=== PATIENT | female | born 2000 | race Two or more races ===

== ENCOUNTER 2020-04-20 17:39 | Emergency (ER) | payer BC, OTHER ==
[~2020-04-20] VITALS: Ht 160 cm; Wt 81.6 kg
[2020-04-20 18:47] VITALS: BP 131/81
[2020-04-20] MEDS ORDERED: KETOROLAC TROMETH 60MG/2ML VIAL IM ONE (19:30)
== END 2020-04-20 20:24 | disposition home or self-care (01) ==
LOC: ER 17:39
DX: S93.402A Sprain of unspecified ligament of left ankle, initial encounter (principal); E11.9 Type 2 diabetes mellitus without complications; X58.XXXA Exposure to other specified factors, initial encounter; Y93.9 Activity, unspecified; Y92.89 Other specified places as the place of occurrence of the external cause; Y99.8 Other external cause status
CPT/HCPCS: 73630; 96372; 99283; J1885

== ENCOUNTER 2022-07-07 22:12 | Emergency (ER) | payer BC ==
[~2022-07-07] VITALS: Ht 160 cm; Wt 74.4 kg
[2022-07-08 00:11] LABS: Basophils # (auto) 0 10 ^3/uL (0-0.2); Basophils % (auto) 0.2 % (0.0-2.0); Eosinophils # (auto) 0 10 ^3/uL (0-0.8); Eosinophils % (auto) 0.3 % (0.0-7.0); Hematocrit 42.7 % (36.0-46.0); Hemoglobin 14.6 g/dL (12.2-16.2); Lymphocytes # (auto) 0.4 10 ^3/uL (0.4-5.4); Lymphocytes % (auto) 6.1 % (10.0-50.0); Mean Corpuscular Hemoglobin 30.5 pg (28.0-32.0); Mean Corpuscular Hgb Conc. 34.3 g/dL (32.0-36.0); Mean Corpuscular Volume 88.9 fL (80.0-100.0); Monocytes # (auto) 0.6 10 ^3/uL (0-1.3); Monocytes % (auto) 8.4 % (0.0-12.0); Neutrophils # (auto) 6.1 10 ^3/uL (1.6-8.6); Red Blood Cells 4.81 10^6/uL (4.0-5.20); White Blood Cell 7.2 10^3/uL (4.4-10.8)
[2022-07-08 00:11] LABS: Urine Bacteria MANY /hpf (None Seen); Urine Blood TRACE /uL (Negative); Urine Mucus FEW (None Seen); Urine Specific Gravity 1.031 (1.001-1.035); Urine WBC 61 /hpf (0 - 5)
[2022-07-08 00:39] LABS: Albumin 3.9 g/dL (3.4-5.0); BUN/Creatinine Ratio 12.6; Calcium 8.4 mg/dL (8.5-10.1); Potassium 3.8 mmol/L (3.5-5.1)
[2022-07-08 00:42] LABS: Bilirubin, Total 1.9 mg/dL (0.2-1.0); Total Protein 7.9 g/dL (6.4-8.2)
[2022-07-08] MEDS ORDERED: METR500T PO (07:23)
[2022-07-08] MEDS ORDERED: CIPR-173 PO (07:23)
[2022-07-08 07:37] VITALS: BP 113/60
== END 2022-07-08 07:23 | disposition home or self-care (01) ==
LOC: ER 22:14
DX: K52.9 Noninfective gastroenteritis and colitis, unspecified (principal); E11.9 Type 2 diabetes mellitus without complications; Z20.822 Contact with and (suspected) exposure to COVID-19
CPT/HCPCS: 36415; 71045; 74176; 80053; 81001; 82962; 83690; 85025

== ENCOUNTER 2023-07-20 18:18 | Emergency (ER) | payer BC ==
[~2023-07-20] VITALS: Ht 160 cm; Wt 88.6 kg
[~2023-07-20 18:18] MED LIST: CIPR-173 PO; METR500T PO
[2023-07-20 18:40] VITALS: BP 136/85; PULSE 96; RESP 20; O2SAT 96
== END 2023-07-20 20:45 | disposition left against medical advice (07) ==
LOC: ER 18:18
DX: T81.89XA Other complications of procedures, not elsewhere classified, initial encounter (principal); Z53.21 Procedure and treatment not carried out due to patient leaving prior to being seen by health care provider

== ENCOUNTER 2025-09-23 09:08 | Emergency (ER) | payer BC, MEDICAID ==
[~2025-09-23] VITALS: Ht 160 cm; Wt 86.4 kg
[2025-09-23 09:19] VITALS: BP 149/96; PULSE 90; RESP 18; TEMP 97.9; O2SAT 97
--- NOTE | 2025-09-23 09:40 | ED.PDOC ---
Eye-HPI HPI Comments 25 year-old female presents to the ED with a chief complaint of fever, chills, throat pain, and cough for X1 month. Patient additionally reports some chest pain as of last night. Patient states when EENT symptoms first originated, she was taking over the counter antibiotics. Patient reports minimal to no relief with the medications. Patient has no further complaints at this time and denies symptoms of palpitations, dizziness, weakness, fatigue, or N/V/D. Chief Complaint: Sore Throat Time Seen by MD: 09:31 Primary Care Provider: OLEKSANDR Thomas Notes: Medications, Allergies Allergies: Coded Allergies: NO KNOWN ALLERGIES (Unverified , 07/07/22) Home Meds Active Scripts Ciprofloxacin Hcl (Cipro) 500 Mg Tab, 500 MG PO BID for 7 Days, #14 CAP Prov:JULIANA EDGE MD 07/08/22 Metronidazole (Flagyl) 500 Mg Tab, 500 MG PO BID for 7 Days, #14 TAB Prov:JULIANA EDGE MD 07/08/22 Information Source: Patient Mode of Arrival: Ambulatory Timing: Weeks Duration: Since onset Onset: Spontaneous Associated signs and symptoms: Fever, Chills, Sore Throat Past Medical History PAST MEDICAL HISTORY: DM Surgical History: Denies all surgeries [employer] PROFESSOR History: No Pertinent [employer] PROFESSOR History Family History Family History: Reviewed,noncontributory to illness, No family hx of Cancer, No family hx of DM, No family hx of Heart veronica, No family hx of HTN, No family hx ofKidney veronica, No family hx of Liver veronica, No family hx of Lung veronica, No family hx of Stroke Social History Smoker: Non-Smoker Alcohol: Denies ETOH Use Drugs: Denies Drug Use Lives In: Home Constitutional: reports: chills, fever; denies: diaphoresis, fatigue, malaise, sweats, weakness, others EENTM: reports: throat pain; denies: blurred vision, double vision, ear bleeding, ear discharge, ear drainage, ear pain, ear ringing, eye pain, eye redness, hearing loss, mouth pain, mouth swelling, nasal discharge, nose bleeding, nose congestion, nose pain, photophobia, tearing, throat swelling, voice changes, others Respiratory: reports: cough; denies: hemoptysis, orthopnea, SOB at rest, shortness of breath, SOB with excertion, stridor, wheezing, others Cardiovascular: reports: chest pain; denies: dizzy spells, diaphoresis, Dyspnea on exertion, edema, irregular heart beat, left arm pain, lightheadedness, palpitations, PND, syncope, others Gastrointestinal: denies: abdomen distended, abdominal pain, blood streaked bowels, constipated, diarrhea, dysphagia, difficulty swallowing, hematemesis, melena, nausea, poor appetite, poor fluid intake, rectal bleeding, rectal pain, vomiting, others Genitourinary: denies: abnormal vagina bleeding, burning, dyspareunia, dysuria, flank pain, frequency, hematuria, incontinence, pain, , vagina discharge, urgency, others Neurological: denies: dizziness, fainting, headache, left sided numbness, left sided weakness, numbness, paresthesia, pre-existing deficit, right sided numbness, right sided weakness, seizure, speech problems, tingling, tremors, weakness, others Musculoskeletal: denies: back pain, gout, joint pain, joint swelling, muscle pain, muscle stiffness, neck pain, others Integumetry: denies: bruises, change in color, change in hair/nails, dryness, laceration, lesions, lumps, rash, wounds, others Allergic/Immunocompromised: denies: Difficulty Healing, Frequent Infections, Hives, Itching, others Hematologic/Lymphatic: denies: anemia, blood clots, easy bleeding, easy bruising, swollen glands, others Endocrine: denies: excessive hunger, excessive sweating, excessive thirst, excessive urination, flushing, intolerance to cold, intolerance to heat, unexplained weight gain, unexplained weight loss, others Psychiatric: denies: anxiety, bipolar disorder, depression, hopeless, panic disorder, schizophrenia, sleepless, suicidal, others All Other Systems: Reviewed and Negative Physical Exam General Appearance: Mild Distress, Obese HEENT: Normal ENT Inspection, PERRL/EOMI, Pharyngeal Erythema Neck: Full Range of Motion, Non-Tender, Normal, Normal Inspection Respiratory: Chest Non-Tender, Lungs Clear, No Accessory Muscle Use, No Respi ratory Distress, Normal Breath Sounds Cardiovascular: No Edema, No JVD, No Murmur, No Gallop, Normal Peripheral Pulses, Regular Rate/Rhythm Breast Exam: Deferred Gastrointestinal: No Organomegaly, Non Tender, No Pulsatile Mass, Normal Bowel Sounds, Soft Genitalia: Deferred Pelvic: Deferred Rectal: Deferred Extremities: No calf tenderness, Normal capillary refill, Normal inspection, Normal range of motion, Non-tender, No pedal edema Neurologic: Alert, bevel polisher II-XII nml as Tested, No Motor Deficits, Normal Affect, Normal Mood, No Sensory Deficits Cerebellar Function: Normal Reflexes: Normal Skin: Dry, Normal Color, Warm Peripheral Pulses: 1+ carotid (R), 1+ carotid (L) Lymphatic: No Adenopathy Was a procedure done? Was a procedure done?: No EENT DIFF Eye: N/A Ear: N/A Nose: N/A Mouth: N/A Sore Throat: Pharyngitis, Streptococcal, Viral Pharyngitis X-Ray, Labs, Meds, VS Vital Signs Date Time Temp Pulse Resp B/P (MAP) Pulse Ox O2 Delivery O2 Flow Rate FiO2 09/23/25 09:19 97.9 90 18 149/96 97 97.9 X-Ray, Labs, Meds, VS Comment Course in the [employer] events sore throat and not feeling well for the past three weeks got better but then this week it started all over again she has also ear pains and she is coughing Time of 1ST Reevaluation: 10:12 Reevaluation 1ST: Unchanged Patient Education/Counseling: Diagnosis, Treatment Family Education/Counseling: No Family Present SEPSIS Sepsis Screen Date sepsis recognized/suspect: Sep 23, 2025 Time Sepsis recognized/suspect: 920 Recent Procedure: No On Antibiotic Therapy: No Respiratory Rate >20: No Heart Rate >90: No Temp<36 C (96.8 F) or >38.3 C: No SBP <90 or MAP <65 mmHG: No New Acute Mental Status Change: No Is the patient on CPAP, BIPAP,: No Vital Signs Date Time Temp Pulse Resp B/P (MAP) Pulse Ox O2 Delivery O2 Flow Rate FiO2 09/23/25 09:19 97.9 90 18 149/96 97 97.9 Departure 1 Departure Time of Disposition: 09:55 Impression: Primary Impression: Viral syndrome Additional Impressions: Pharyngitis Qualified Codes: J02.9 - Acute pharyngitis, unspecified Earache symptoms in both ears Disposition: HOME / SELF CARE / HOMELESS Condition: Fair Additional Instructions: Follow up with your PCP e-Prescriptions Promethazine HCl (Promethazine Hydrochlorid) 6.25 Mg/5 Ml Ofelia 12.5 MG PO BID for 10 Days, #300 ML Prov: NEELAM SHEPPARD MD 09/23/25 Azithromycin (Zithromax) 500 Mg Tab 500 MG PO DAILY for 5 Days, #5 TAB Prov: NEELAM SHEPPARD MD 09/23/25 Discharged With: Self Critical Care Note Critical Care Time?: No Stability Stability form required: No Heart Score Heart Score: Heart Score Response (Comments) Value History N/A 0 EKG N/A 0 Age <45 0 Risk Factors No known risk factors 0 Troponin N/A 0 Total 0 I personally scribed for NEELAM SHEPPARD MD ([email or web address]) on 09/23/25 at 09:40. Electronically submitted by Lauren Hicks ([employer]). NEELAM SHEPPARD MD Sep 23, 2025 09:40
[2025-09-23] MEDS ORDERED: PROM5SOL PO (09:58)
[2025-09-23] MEDS ORDERED: AZIT500T PO (09:58)
== END 2025-09-23 10:06 | disposition home or self-care (01) ==
LOC: ER 09:08
DX: B34.9 Viral infection, unspecified (principal); J02.9 Acute pharyngitis, unspecified; E11.9 Type 2 diabetes mellitus without complications; Z79.899 Other long term (current) drug therapy